=== PATIENT | male | born 1985 | race American Indian/Alaskan Native ===

== ENCOUNTER 2018-03-17 17:11 | Emergency (ER) | payer OTHER ==
[2018-03-17 17:47] VITALS: BP 115/73
--- NOTE | 2018-03-17 19:32 | XRay Report ---
FINAL REPORT EXAM: XR FOOT 3+V LT HISTORY: fall/left ankle and foot pain TECHNIQUE: Frontal, lateral, oblique views left foot Comparison: X-ray left foot also performed today FINDINGS: There is no evidence of fracture or subluxation. There is hallux valgus deformity of the great toe. There appears to be degenerative change of the great toe metatarsophalangeal joint and interphalangea l joint with erosive change with sclerotic margins on the medial aspect of the metatarsal head and di stal proximal phalanx. This can be seen with gouty arthritis. The soft tissues are unremarkable. IMPRESSION: 1. No evidence of fracture or subluxation. 2. Degenerative change of the great toe metatarsophalangeal joint and interphalangeal joint with bony erosions which can be seen in patients with gout.
--- NOTE | 2018-03-17 19:33 | XRay Report ---
FINAL REPORT EXAM: XR ANKLE 3+V LT HISTORY: fall/left ankle and foot pain TECHNIQUE: Frontal, lateral, mortise views right ankle Comparison: X-ray right foot also performed today FINDINGS: There is no evidence of fracture or subluxation. The mortise joint is maintained. The soft tissues are unremarkable. IMPRESSION: 1. No evidence of fracture or subluxation.
--- NOTE | 2018-03-17 20:51 | Emergency Department Report ---
HPI - General Chief Complaint: Extremity Injury, Lower Time Seen by Provider: 03/17/18 20:31 - HPI HPI: Patient is a 32-year-old male presents ED complaining of left foot and ankle pain status post injury 03/04/2018. Patient states that he jumped up and landed on his foot wrong. Patient states he's had pain since then. Patient denies difficulty walking, swelling or lacerations of the ankle. ED Past Medical Hx - Past Medical History Previous Medical History?: No Additional medical history: denies - Surgical History Past Surgical History?: No - Social History Smoking Status: Never Smoker Substance Use Type: None - Medications Home Medications: Home Medications Medication Instructions Recorded Confirmed Last Taken Type Lidocaine Viscous 2% [Xylocaine 10 ml MM Q3HR #240 ml 05/19/13 Unknown Rx Viscous 2%] Penicillin Vk [Veetids TAB] 500 mg PO QID #40 tablet 05/19/13 Unknown Rx cephALEXin [Keflex] 500 mg PO TID #15 capsule 09/27/13 Unknown Rx Cyclobenzaprine [Flexeril 10 MG 10 mg PO QHS PRN #20 tablet 03/17/18 Unknown Rx TAB] Ibuprofen [Motrin 800 MG tab] 800 mg PO Q8HR PRN #30 tablet 03/17/18 Unknown Rx ED Review of Systems ROS: Stated complaint: (L) FOOT PAIN Other details as noted in HPI Comment: All other systems reviewed and negative Musculoskeletal: denies: back pain, joint swelling, arthralgia, myalgia Physical Exam - Physical Exam Vital Signs: Vital Signs 03/17/18 17:45 Temperature 98.5 F Pulse Rate 78 Respiratory 18 Rate Blood Pressure 115/73 O2 Sat by Pulse 100 Oximetry Physical Exam: GENERAL: Alert and oriented x3, no apparent distress, Normal Gait, atraumatic. HEAD: Head is normocephalic and a-traumatic. LUNGS: Symetrical with respiration, No wheezing, no rales or crackles, CTAB. HEART: S1, S2 present, regular rate and rhythm without murmur, no rubs, no gallops. Non tender to palpation EXTREMITIES/MUSCULOSKELETAL: No cyanosis, clubbing, rash, lesions or edema. Full ROM bilaterally. Pedal Pulses 2+ bilaterally. LE 5+ strength bilaterally, NEUROLOGIC: The patient is cooperative with no focal neurologic deficits. SKIN: Warm and dry, No lesions, No ulceration or induration present. ED Course Vital Signs 03/17/18 17:45 Temperature 98.5 F Pulse Rate 78 Respiratory 18 Rate Blood Pressure 115/73 O2 Sat by Pulse 100 Oximetry ED Medical Decision Making - Radiology Data Radiology results: report reviewed, image reviewed FINAL REPORT EXAM: XR ANKLE 3+V LT HISTORY: fall/left ankle and foot pain TECHNIQUE: Frontal, lateral, mortise views right ankle Comparison: X-ray right foot also performed today FINDINGS: There is no evidence of fracture or subluxation. The mortise joint is maintained. The soft tissues are unremarkable. IMPRESSION: 1. No evidence of fracture or subluxation. Transcribed By: ED Dictated By: JOSE VASQUEZ MD Electronically Authenticated By: JOSE VASQUEZ MD Signed Date/Time: 03/17/181932 - Medical Decision Making 32-year-old male presents to ED with ankle arthralgia ED course: Patient is able to ambulate without any problems. Vital signs are normal patient is in no acute distress Discussed with patient follow-up with primary care physician. Discussed the patient and take medications as prescribed. Patient has no neurological deficit. Patient is alert and oriented 3 and understands all instructions given. Discussed drowsiness effect of Flexeril makes hIM drowsy and not to operate machinery while taking flexeril Critical care attestation.: If time is entered above; I have spent that time in minutes in the direct care of this critically ill patient, excluding procedure time. ED Disposition Clinical Impression: Left ankle strain Disposition: DC-01 TO HOME OR SELFCARE Is pt being admited?: No Does the pt Need Aspirin: No Condition: Stable Instructions: Ankle Sprain (ED), Muscle Strain (ED), Arthralgia (ED), Ankle Exercises (GEN), Heat Pack Application (ED) Additional Instructions: Make sure to follow up with the primary care physician as discussed. Take all your medications as you've been prescribed. If you have any worsening symptoms or develop new symptoms please return to ED immediately. Prescriptions: Cyclobenzaprine [Flexeril 10 MG TAB] 10 mg PO QHS PRN #20 tablet PRN Reason: Muscle Spasm Ibuprofen [Motrin 800 MG tab] 800 mg PO Q8HR PRN #30 tablet PRN Reason: Pain Referrals: [facility] [Outside] - 3-5 Days [facility] [Outside] - 3-5 Days Forms: Work/School Release Form(ED) Time of Disposition: 20:51
[2018-03-17] MEDS ORDERED: IBUPROFEN PO ONE (20:52)
== END 2018-03-17 21:10 | disposition home or self-care (01) ==
LOC: ED 17:11
DX: S96.912A Strain of unspecified muscle and tendon at ankle and foot level, left foot, initial encounter (principal); X58.XXXA Exposure to other specified factors, initial encounter; Y93.39 Activity, other involving climbing, rappelling and jumping off; Y92.89 Other specified places as the place of occurrence of the external cause; Y99.8 Other external cause status